=== PATIENT | male | born 1980 | race Caucasian/White ===

== ENCOUNTER 2024-06-22 16:46 | Outpatient (REF) | payer BC, SELFPAY ==
--- NOTE | 2024-06-22 09:33 | SKI_PTH ---
PATIENT: Jose Rothman LOC: [facility] U#:[id number] AGE/SX: 43/M ROOM: RE06/22/[address]: Jose Erwin MD : 1980 BED: DIS: 06/22/2024 SPEC #: [id number] RECD: 06/22/24 17:38 STATUS: EMILY REMadison #: [id number] NADEGE: 06/22/24 09:[address]: Jose Erwin DEPT: Surgical Specimen RECD BY: Corazon Fuentes ENTERED: 06/22/24 17:41 SP TYPE: HUDSON CUMMINGS DR: CARA LAMA Tissues: 1 - SKIN BIOPSY(SHAVE/PUNCH) Procedures: GROSS AND MICRO LEVEL 4 SPECIAL STAIN 1 Comments: [id number]
== END 2024-06-22 16:47 | disposition home or self-care (01) ==
LOC: LBN 16:46
PROVIDERS: PCP Nurse Practitioner Family; Referring Provider Nurse Practitioner Family; Visit Provider Otolaryngology
DX: J34.0 Abscess, furuncle and carbuncle of nose (principal)
CPT/HCPCS: 88305; 88312